=== PATIENT | female | born 1990 | race Two or more races ===

== ENCOUNTER 2018-03-01 03:12 | Emergency (ER) | payer OTHER ==
[~2018-03-01] VITALS: Ht 182.9 cm; Wt 90.7 kg
[2018-03-01] MEDS ORDERED: PEPCID40 MG PO (05:46)
[2018-03-01] MEDS ORDERED: LEVSIN/SL0.125 MG SL (05:46)
== END 2018-03-01 05:54 | disposition home or self-care (01) ==
LOC: ER 03:12
DX: K29.70 Gastritis, unspecified, without bleeding (principal)